=== PATIENT | female | born 1990 | race Caucasian/White ===

== ENCOUNTER 2018-09-10 07:07 | Day surgery (SDC) | payer OTHER ==
[~2018-09-10 07:07] MED LIST: CIPROFLOXACIN 400 MG in D5W 200 ML IVPB
[2018-09-10] MEDS ORDERED: IOHEXOL 300MG/ML 30 ML BTL (11:03)
[2018-09-10] MEDS ORDERED: ROCURONIUM 50 MG INJ (11:14)
[2018-09-10] MEDS ORDERED: GLYCOPYRROLATE 0.4 MG INJ ×3 (11:14→12:32)
[2018-09-10] MEDS ORDERED: PROPOFOL 20 ML (11:14)
[2018-09-10] MEDS ORDERED: LIDOCAINE 2% (SDV) 5 ML INJ (11:14)
[2018-09-10] MEDS ORDERED: SUCCINYLCHOLINE CHLORIDE 100 MG/5 ML SYG IV (11:14)
[2018-09-10] MEDS ORDERED: MEPERIDINE 100 MG INJ (11:15)
[2018-09-10] MEDS ORDERED: MEPERIDINE 25 MG INJ IV (12:00)
[2018-09-10] MEDS ORDERED: DIPHENHYDRAMINE 50 MG INJ IV (12:00)
[2018-09-10] MEDS ORDERED: MIDAZOLAM 1 MG/ML 2 ML INJ IV (12:00)
[2018-09-10] MEDS ORDERED: FENTAnyl 50 MCG/ML VIAL IV ×3 (12:00)
[2018-09-10] MEDS ORDERED: HYDROmorphONE 1 MG/5 ML IV SYRINGE IV ×2 (12:00)
[2018-09-10] MEDS ORDERED: LABETALOL HCL 20MG INJ IV (12:00)
[2018-09-10] MEDS ORDERED: OXYCODONE/ACETAMINOPHEN (5/325) TAB PO (12:00)
[2018-09-10] MEDS ORDERED: hydrALAzine 20 MG INJ IV (12:00)
[2018-09-10] MEDS ORDERED: ONDANSETRON 4 MG INJ IV (12:00)
[2018-09-10] MEDS ORDERED: METOCLOPRAMIDE 10 MG INJ IV (12:00)
[2018-09-10] MEDS ORDERED: EPHEDrine SULFATE 50 MG/5 ML SYG IV (12:00)
[2018-09-10] MEDS ORDERED: NEOSTIGMINE 10 MG INJ (12:32)
[2018-09-10] MEDS ORDERED: METOCLOPRAMIDE 10 MG INJ (12:33)
[2018-09-10] MEDS ORDERED: ONDANSETRON 4 MG INJ (12:33)
[2018-09-10] MEDS: HYDROmorphONE 1 MG/5 ML IV SYRINGE IV (13:08)
[2018-09-10] MEDS: OXYCODONE/ACETAMINOPHEN (5/325) TAB PO (14:15)
== END 2018-09-10 14:50 | disposition home or self-care (01) ==
LOC: SDS 07:07
DX: N20.0 Calculus of kidney (principal); N35.92 Unspecified urethral stricture, female; E11.9 Type 2 diabetes mellitus without complications; E78.5 Hyperlipidemia, unspecified; I10 Essential (primary) hypertension
CPT/HCPCS: 52344; 74430; 82962